=== PATIENT | male | born 1945 | race Two or more races ===

== ENCOUNTER → 2019-06-14 | Outpatient (CLI) | payer OTHER ==
[~2019-06-14] MED LIST: CELEBREX100 MG PO; LISINOPRIL2.5 MG PO; METFORMIN HYDRO25 GM MC; METRO IV; PLAVIX75 MG PO; SKELAXIN800 MG PO
== END | disposition home or self-care (01) ==
LOC: RAD 10:57
DX: M54.2 Cervicalgia (principal); M54.5 Low back pain

== ENCOUNTER 2019-07-19 12:47 | Emergency (ER) | payer OTHER ==
[~2019-07-19] VITALS: Ht 177.8 cm; Wt 86.2 kg
[2019-07-19] MEDS ORDERED: CRESTOR40 MG (13:15)
[2019-07-19] MEDS ORDERED: TOPROL XL25 M1 (13:15)
[2019-07-19] MEDS ORDERED: ASPIR 8181 MG (13:15)
[2019-07-19] MEDS ORDERED: GLIMEPIRIDE1 M1 (13:15)
[2019-07-19] MEDS ORDERED: BENICAR40 MG (13:16)
[2019-07-19] MEDS ORDERED: FINASTERIDE5 MG (13:16)
== END 2019-07-19 16:18 | disposition home or self-care (01) ==
LOC: ER 12:47
DX: M25.561 Pain in right knee (principal)

== ENCOUNTER 2019-07-22 09:49 | Emergency (ER) | payer OTHER ==
[~2019-07-22] VITALS: Ht 152.4 cm; Wt 86.2 kg
[~2019-07-22 09:49] MED LIST changes: +ASPIR 8181 MG; +BENICAR40 MG; +CRESTOR40 MG; +FINASTERIDE5 MG; +GLIMEPIRIDE1 M1; +TOPROL XL25 M1
[2019-07-22] MEDS ORDERED: KETO10TA2 PO (10:58)
== END 2019-07-22 11:19 | disposition home or self-care (01) ==
LOC: ER 09:49
DX: M25.561 Pain in right knee (principal)

== ENCOUNTER 2019-08-20 13:33 | Outpatient (CLI) | payer OTHER | END 2019-08-20 13:45 | disposition home or self-care (01) | LOC: NUCLEAR 13:33 | DX: M85.89 Other specified disorders of bone density and structure, multiple sites (principal) ==

== ENCOUNTER → 2019-08-20 | Outpatient (CLI) | payer OTHER ==
[~2019-08-20] MED LIST changes: +KETO10TA2 PO
== END | disposition home or self-care (01) ==
LOC: RAD 12:19
DX: M25.551 Pain in right hip (principal); M25.552 Pain in left hip; M79.645 Pain in left finger(s)

== ENCOUNTER 2019-08-31 10:41 | Emergency (ER) | payer OTHER ==
[~2019-08-31] VITALS: Ht 177.8 cm; Wt 86.2 kg
== END 2019-08-31 11:59 | disposition home or self-care (01) ==
LOC: ER 10:41
DX: M54.5 Low back pain (principal)

== ENCOUNTER 2019-09-02 13:54 | Emergency (ER) | payer OTHER ==
[~2019-09-02] VITALS: Ht 177.8 cm; Wt 86.2 kg
[2019-09-02] MEDS ORDERED: NORFLEX100MG (14:34)
== END 2019-09-02 16:10 | disposition home or self-care (01) ==
LOC: ER 13:54
DX: S00.12XA Contusion of left eyelid and periocular area, initial encounter (principal); W18.39XA Other fall on same level, initial encounter; Y93.89 Activity, other specified; Y92.090 Kitchen in other non-institutional residence as the place of occurrence of the external cause; Y99.8 Other external cause status

== ENCOUNTER 2021-11-01 13:08 | Emergency (ER) | payer OTHER ==
[~2021-11-01] VITALS: Ht 170.2 cm; Wt 75.7 kg
[~2021-11-01 13:08] MED LIST changes: +NORFLEX100MG
[2021-11-01] MEDS ORDERED: JARDIANCE10 MG PO (14:10)
[2021-11-01] MEDS ORDERED: KAYEXALATE15 GM/60 M PO (18:17)
== END 2021-11-01 20:20 | disposition home or self-care (01) ==
LOC: ER 13:08
DX: E87.5 Hyperkalemia (principal); R53.81 Other malaise; R53.83 Other fatigue; Z20.822 Contact with and (suspected) exposure to COVID-19; E11.9 Type 2 diabetes mellitus without complications; Z79.84 Long term (current) use of oral hypoglycemic drugs; E78.00 Pure hypercholesterolemia, unspecified; I10 Essential (primary) hypertension

== ENCOUNTER 2023-05-06 10:33 | Emergency (ER) | payer OTHER ==
[~2023-05-06] VITALS: Ht 175.3 cm; Wt 74.8 kg
[~2023-05-06 10:33] MED LIST changes: +JARDIANCE10 MG PO; +KAYEXALATE15 GM/60 M PO
[2023-05-06] MEDS ORDERED: PLAVIX75 MG (10:48)
[2023-05-06] MEDS ORDERED: HORIZANT300 MG (10:49)
[2023-05-06] MEDS ORDERED: FARXIGA5 MG PO (10:50)
[2023-05-06] MEDS ORDERED: HYDROCHLOROTH12.5 MG PO (10:51)
[2023-05-06] MEDS ORDERED: DOLOGESIC 500-1 EACH PO (15:40)
== END 2023-05-06 16:01 | disposition home or self-care (01) ==
LOC: ER 10:33
DX: M16.11 Unilateral primary osteoarthritis, right hip (principal); M70.51 Other bursitis of knee, right knee
CPT/HCPCS: 96372; 99282; J1100

== ENCOUNTER 2023-06-07 14:34 | Outpatient (CLI) | payer OTHER ==
[~2023-06-07 14:34] MED LIST changes: +DOLOGESIC 500-1 EACH PO; +FARXIGA5 MG PO; +HORIZANT300 MG; +HYDROCHLOROTH12.5 MG PO; +PLAVIX75 MG
== END 2023-06-07 14:55 | disposition home or self-care (01) ==
LOC: RAD 14:34
PROVIDERS: ATTEND Orthopaedic Surgery
DX: M25.531 Pain in right wrist (principal); M79.641 Pain in right hand

== ENCOUNTER 2023-06-16 10:19 | Outpatient (CLI) | payer OTHER | END 2023-06-16 10:20 | disposition home or self-care (01) | LOC: NUCLEAR 10:19 | PROVIDERS: ATTEND Orthopaedic Surgery | DX: M81.0 Age-related osteoporosis without current pathological fracture (principal) ==

== ENCOUNTER 2023-06-16 11:41 | Outpatient (CLI) | payer OTHER | END 2023-06-16 11:49 | disposition home or self-care (01) | LOC: SONOGRAMA 11:41 | PROVIDERS: ATTEND Urology | DX: N40.1 Benign prostatic hyperplasia with lower urinary tract symptoms (principal) ==

== ENCOUNTER → 2023-06-21 11:08 | Outpatient (CLI) | payer OTHER ==
[2023-06-21 11:49] LABS: URINE APPEARANCE Clear; URINE BILIRRUBIN Negative (NEGATIVE); URINE BLOOD Negative; URINE COLOR Yellow; URINE LEUKOCYTE Negative; URINE NITRATE Negative; URINE UROBILINOGEN 0.2 E.U./dl
[2023-06-21 11:54] LABS: URINE BACTERIA 7.5 uL (0.0-1933)
[2023-06-21 11:55] LABS: URINE EPITHELIAL CELLS 1.3 uL (0.0-38.8); URINE GLUCOSE >=1000 MG/DL (NEGATIVE); URINE PROTEIN 100 (NEGATIVE); URINE RBC 0.7 uL (0.0-20.8); URINE WBC 1.2 uL (0.0-23.2)
[2023-06-21 12:28] LABS: ALBUMIN 3.6 gm/dL (3.4-5.0); BILIRUBIN TOTAL 0.52 mg/dL (0.3-1.2); CALCIUM 9.5 mg/dL (8.5-10.1); CREATININE SERUM 1.81 mg/dL (0.70-1.30); GFR 36.35; GLOBULINA 3.5 G/DL (2.4-3.5); MAGNESIUM 1.7 mg/dL (1.8-2.4); PHOSPHOROUS 3.5 mg/dL (2.5-4.9); POTASSIUM 4.58 mEq/L (3.5-5.1); TOTAL PROTEIN 7.1 gm/dL (6.4-8.2)
== END | disposition home or self-care (01) ==
LOC: LAB 11:08
PROVIDERS: ATTEND Orthopaedic Surgery
DX: N40.1 Benign prostatic hyperplasia with lower urinary tract symptoms (principal); E55.9 Vitamin D deficiency, unspecified; M85.9 Disorder of bone density and structure, unspecified; E56.1 Deficiency of vitamin K; M81.8 Other osteoporosis without current pathological fracture; E88.89 Other specified metabolic disorders

== ENCOUNTER → 2023-07-11 10:25 | Outpatient (CLI) | payer OTHER ==
[2023-07-11 11:07] LABS: PH,URINE 6.5 (5.0-8.0); URINE APPEARANCE Clear; URINE BILIRRUBIN Negative (NEGATIVE); URINE BLOOD Large; URINE COLOR Yellow; URINE LEUKOCYTE Negative; URINE NITRATE Negative; URINE PROTEIN 30 (NEGATIVE); URINE UROBILINOGEN 0.2 E.U./dl
[2023-07-11 11:10] LABS: HEMATOCRIT 37.7 % (39.0-48.0); HEMOGLOBIN 12.8 g/dL (13-16.00); MEAN CELL VOLUME 92.7 fL (80.0-100.00); MEAN CORPUSCULAR HEMOGLOBIN 31.4 pg (27.00-32.0); MEAN CORPUSCULAR HGB CONC 33.8 g/dl (32.0-36.0); PLATELET COUNT 258 K/uL (150-450); RED BLOOD COUNT 4.07 M/uL (4.00-6.00); RED CELL DISTRIBUTION WIDTH 13.3 % (11.5-14.5)
[2023-07-11 11:11] LABS: URINE BACTERIA 85.6 uL (0.0-1933); URINE RBC 2455.8 uL (0.0-20.8); URINE WBC 25.7 uL (0.0-23.2)
[2023-07-11 11:15] LABS: URINE GLUCOSE >=1000 MG/DL (NEGATIVE)
[2023-07-11 11:27] LABS: INR 1.02; PARTIAL THROMBOPLASTIN TIME 27.5 SECONDS (22.0-34.0); PROTHROMBIN TIME 10.7 SECONDS (9.0-11.5)
[2023-07-11 11:35] LABS: ALBUMIN 3.8 gm/dL (3.4-5.0); BILIRUBIN TOTAL 0.62 mg/dL (0.3-1.2); CALCIUM 9.1 mg/dL (8.5-10.1); CREATININE SERUM 1.84 mg/dL (0.70-1.30); GFR 35.66; GLOBULINA 3.4 G/DL (2.4-3.5); POTASSIUM 4.69 mEq/L (3.5-5.1); TOTAL PROTEIN 7.2 gm/dL (6.4-8.2)
== END | disposition home or self-care (01) ==
LOC: LAB 10:25
DX: I11.9 Hypertensive heart disease without heart failure (principal); D68.8 Other specified coagulation defects; N39.0 Urinary tract infection, site not specified

== ENCOUNTER 2023-07-26 15:07 | Outpatient (CLI) | payer OTHER | END 2023-07-26 15:15 | disposition home or self-care (01) | LOC: RAD 15:07 | PROVIDERS: ATTEND Orthopaedic Surgery | DX: M16.11 Unilateral primary osteoarthritis, right hip (principal); M17.11 Unilateral primary osteoarthritis, right knee ==

== ENCOUNTER → 2023-08-04 09:18 | Outpatient (CLI) | payer OTHER ==
[2023-08-04 10:24] LABS: HEMATOCRIT 35.3 % (39.0-48.0); HEMOGLOBIN 11.9 g/dL (13-16.00); MEAN CELL VOLUME 93.8 fL (80.0-100.00); MEAN CORPUSCULAR HEMOGLOBIN 31.6 pg (27.00-32.0); MEAN CORPUSCULAR HGB CONC 33.7 g/dl (32.0-36.0); PLATELET COUNT 305 K/uL (150-450); RED BLOOD COUNT 3.76 M/uL (4.00-6.00); RED CELL DISTRIBUTION WIDTH 13.1 % (11.5-14.5)
[2023-08-04 10:28] LABS: PH,URINE 6.5 (5.0-8.0); URINE APPEARANCE Clear; URINE BILIRRUBIN Negative (NEGATIVE); URINE BLOOD Negative; URINE COLOR Yellow; URINE LEUKOCYTE Negative; URINE NITRATE Negative; URINE PROTEIN 30 (NEGATIVE); URINE UROBILINOGEN 0.2 E.U./dl
[2023-08-04 10:30] LABS: URINE EPITHELIAL CELLS 1.8 uL (0.0-38.8); URINE WBC 4.6 uL (0.0-23.2)
[2023-08-04 10:45] LABS: URINE GLUCOSE >=1000 MG/DL (NEGATIVE); URINE RBC 1.8 uL (0.0-20.8)
[2023-08-04 10:54] LABS: INR 0.99; PARTIAL THROMBOPLASTIN TIME 27.5 SECONDS (22.0-34.0); PROTHROMBIN TIME 10.4 SECONDS (9.0-11.5)
[2023-08-04 10:55] LABS: ALBUMIN 3.4 gm/dL (3.4-5.0); BILIRUBIN TOTAL 0.39 mg/dL (0.3-1.2); CALCIUM 9.2 mg/dL (8.5-10.1); CREATININE SERUM 2.11 mg/dL (0.70-1.30); GFR 30.45; GLOBULINA 3.3 G/DL (2.4-3.5); POTASSIUM 4.61 mEq/L (3.5-5.1); TOTAL PROTEIN 6.7 gm/dL (6.4-8.2)
[2023-08-04 11:04] LABS: COL EPI 76 SECONDS (82-175)
== END | disposition home or self-care (01) ==
LOC: LAB 09:18
PROVIDERS: ATTEND Orthopaedic Surgery
DX: D64.9 Anemia, unspecified (principal); D68.8 Other specified coagulation defects; N39.0 Urinary tract infection, site not specified; E11.9 Type 2 diabetes mellitus without complications; E03.9 Hypothyroidism, unspecified; Z20.822 Contact with and (suspected) exposure to COVID-19; E55.9 Vitamin D deficiency, unspecified

== ENCOUNTER 2023-08-07 10:50 | Outpatient (CLI) | payer OTHER | END 2023-08-07 10:58 | disposition home or self-care (01) | LOC: TOM 10:50 | PROVIDERS: ATTEND Orthopaedic Surgery | DX: M16.11 Unilateral primary osteoarthritis, right hip (principal) ==

== ENCOUNTER 2023-08-15 10:34 | Outpatient (CLI) | payer OTHER | END 2023-08-15 10:35 | disposition home or self-care (01) | LOC: NUCLEAR 10:34 | PROVIDERS: ATTEND Internal Medicine | DX: I10 Essential (primary) hypertension (principal); I50.30 Unspecified diastolic (congestive) heart failure ==

== ENCOUNTER 2023-08-15 12:21 | Outpatient (CLI) | payer OTHER ==
[2023-08-15 13:33] LABS: URINE APPEARANCE Clear; URINE BILIRRUBIN Negative (NEGATIVE); URINE BLOOD Negative; URINE COLOR Yellow; URINE LEUKOCYTE Negative; URINE NITRATE Negative; URINE PROTEIN 30 (NEGATIVE); URINE UROBILINOGEN 0.2 E.U./dl
[2023-08-15 13:46] LABS: URINE EPITHELIAL CELLS 0.6 uL (0.0-38.8); URINE GLUCOSE 500 MG/DL (NEGATIVE); URINE RBC 0.5 uL (0.0-20.8); URINE WBC 0.3 uL (0.0-23.2)
== END 2023-08-15 12:22 | disposition home or self-care (01) ==
LOC: LAB 12:21
PROVIDERS: ATTEND Orthopaedic Surgery
DX: N39.0 Urinary tract infection, site not specified (principal)

== ENCOUNTER → 2023-08-17 13:23 | Outpatient (CLI) | payer OTHER ==
[2023-08-17 14:16] LABS: HEMATOCRIT 36.7 % (39.0-48.0); HEMOGLOBIN 12.4 g/dL (13-16.00); MEAN CELL VOLUME 93.3 fL (80.0-100.00); MEAN CORPUSCULAR HEMOGLOBIN 31.6 pg (27.00-32.0); MEAN CORPUSCULAR HGB CONC 33.9 g/dl (32.0-36.0); PLATELET COUNT 249 K/uL (150-450); RED BLOOD COUNT 3.93 M/uL (4.00-6.00); RED CELL DISTRIBUTION WIDTH 13.5 % (11.5-14.5)
[2023-08-17 14:55] LABS: FERRITIN 51.1 NG/ML (26-388)
[2023-08-17 15:20] LABS: FOLIC ACID 16.97 ng/ml (4.78-20)
[2023-08-19 08:10] LABS: COMPLEMENT C3 123 mg/dL (82-167); COMPLEMENT C4 31 mg/dL (12-38); IMMUNOGLOBULIN A 105 mg/dL (61-437); IMMUNOGLOBULIN G 1057 mg/dL (603-1613); IMMUNOGLOBULIN M 32 mg/dL (15-143)
[2023-08-20 22:05] LABS: CH 50 COMPLEMENT > 60 U/mL (>41)
== END | disposition home or self-care (01) ==
LOC: LAB 13:23
PROVIDERS: ATTEND Internal Medicine Hematology & Oncology
DX: D70.8 Other neutropenia (principal); D80.4 Selective deficiency of immunoglobulin M [IgM]; D80.8 Other immunodeficiencies with predominantly antibody defects; D50.8 Other iron deficiency anemias; D51.3 Other dietary vitamin B12 deficiency anemia; D52.0 Dietary folate deficiency anemia

== ENCOUNTER 2023-08-21 09:25 | Inpatient (IN) | payer OTHER ==
[~2023-08-21] VITALS: Ht 177.8 cm; Wt 74.8 kg
[2023-08-21] MEDS ORDERED: TRANEXAMIC ACID 100MG/1ML (1000MG) AMPUL IV ONE (13:00)
[2023-08-21] MEDS ORDERED: CEFAZOLIN SODIUM 1,000 MG VIAL ONE (13:00)
[2023-08-21] MEDS ORDERED: BUPIVACAINE HCL/PF 0.5% 30ML ML ONE (13:36)
[2023-08-21] MEDS ORDERED: EPINEPHRINE HCL/PF 1 MG/ML AMPUL ONE (13:36)
[2023-08-21] MEDS ORDERED: LIDOCAINE HCL/EPINEPHRINE 10MG/ML 1% 50ML IJ ONE (13:36)
[2023-08-21] MEDS ORDERED: KETOROLAC TROMETHAMINE 60 MG VIAL IM ONE (13:36)
[2023-08-21] MEDS ORDERED: VANCOMYCIN HCL 1,000 MG VIAL ONE (13:36)
[2023-08-21] MEDS ORDERED: BUPIVACAINE HCL/PF 0.5% 30ML ML IJ SCH (14:45)
[2023-08-21] MEDS ORDERED: KETOROLAC TROMETHAMINE 60 MG VIAL IM SCH (14:45)
[2023-08-21] MEDS ORDERED: EPINEPHRINE HCL/PF 1 MG/ML AMPUL IR SCH (14:45)
[2023-08-21] MEDS ORDERED: TRANEXAMIC ACID 100MG/1ML (1000MG) AMPUL IV SCH ×2 (14:45)
[2023-08-21] MEDS ORDERED: MORPHINE SULFATE 4 MG/ML CARTRIDGE IV SCH (14:45)
[2023-08-21] MEDS ORDERED: CEFAZOLIN SODIUM 1,000 MG VIAL IV SCH ×2 (14:45→17:00)
[2023-08-21] MEDS ORDERED: VANCOMYCIN HCL 1,000 MG VIAL IR SCH (14:45)
[2023-08-21] MEDS ORDERED: ISOPROPYL ALCOHOL 30 ML OUNCE TOP SCH (14:45)
[2023-08-21] MEDS ORDERED: LIDOCAINE HCL/EPINEPHRINE 30 ML ML IJ SCH (14:45)
[2023-08-21] MEDS ORDERED: PANTOPRAZOLE SODIUM 40 MG TABLET.DR PO SCH (16:58)
[2023-08-21] MEDS ORDERED: ACETAMINOPHEN 325 MG TABLET PO SCH (17:00)
[2023-08-21] MEDS ORDERED: CELECOXIB 200 MG CAPSULE PO SCH (17:00)
[2023-08-21] MEDS ORDERED: ONDANSETRON HCL 2 MG/ML VIAL IV PRN (17:00)
[2023-08-21] MEDS ORDERED: ONDANSETRON 4 MG TAB.RAPDIS PO PRN (17:00)
[2023-08-21] MEDS ORDERED: TRAMADOL HCL 50 MG TABLET PO PRN (17:00)
[2023-08-21] MEDS ORDERED: PROMETHAZINE HCL 50 MG/ML AMPUL IM PRN (17:00)
[2023-08-21] MEDS ORDERED: MEPERIDINE HCL/PF 50 MG/ML VIAL IM PRN (17:00)
[2023-08-21] MEDS ORDERED: SODIUM CHLORIDE 0.45 % 1,000 ML IV SCH (17:00)
[2023-08-21] MEDS ORDERED: KETOROLAC TROMETHAMINE 10 MG TABLET PO SCH (21:00)
[2023-08-21] MEDS ORDERED: INSULIN LISPRO 1,000 UNIT/10 ML UNITS SUBCUTANEO PRN (21:45)
[2023-08-21] MEDS ORDERED: DEXTROSE 50 % IN WATER 0.5 G/ML DISP.SYRIN IV PRN (21:45)
[2023-08-22 07:32] LABS: HEMOGLOBIN 10.4 g/dL (13-16.00); MEAN CELL VOLUME 93.1 fL (80.0-100.00); MEAN CORPUSCULAR HEMOGLOBIN 32.1 pg (27.00-32.0); MEAN CORPUSCULAR HGB CONC 34.5 g/dl (32.0-36.0); PLATELET COUNT 207 K/uL (150-450); RED BLOOD COUNT 3.22 M/uL (4.00-6.00); RED CELL DISTRIBUTION WIDTH 12.8 % (11.5-14.5)
[2023-08-22] MEDS ORDERED: HYDROCHLOROTHIAZIDE 12.5 MG CAPSULE PO SCH (09:00)
[2023-08-22] MEDS ORDERED: METOPROLOL SUCCINATE 100 MG TAB.SR.24H PO SCH (09:00)
[2023-08-22] MEDS ORDERED: RIVAROXABAN 10 MG TAB PO SCH (09:00)
[2023-08-22] MEDS ORDERED: IRON FUM,PS/FOLIC/BCOMP,C NO.9 1 CAP CAPSULE PO SCH (14:27)
[2023-08-23 05:13] LABS: HEMATOCRIT 29.5 % (39.0-48.0); HEMOGLOBIN 10.2 g/dL (13-16.00); MEAN CELL VOLUME 92.5 fL (80.0-100.00); MEAN CORPUSCULAR HEMOGLOBIN 32.2 pg (27.00-32.0); MEAN CORPUSCULAR HGB CONC 34.8 g/dl (32.0-36.0); PLATELET COUNT 214 K/uL (150-450); RED BLOOD COUNT 3.18 M/uL (4.00-6.00); RED CELL DISTRIBUTION WIDTH 12.9 % (11.5-14.5)
[2023-08-23] MEDS ORDERED: SENNA/DOCUSATE SODIUM 1 TAB TABLET PO SCH (09:00)
== END 2023-08-23 16:14 | DRG 470 ==
LOC: O/R 09:25 → SURG 13:00
PROVIDERS: ADMIT Orthopaedic Surgery; ATTEND Orthopaedic Surgery
PROC: 0MBL0ZZ Excision of Right Hip Bursa and Ligament, Open Approach (ICD-10-PCS; 2023-08-21)
PROC: 01NF0ZZ Release Sciatic Nerve, Open Approach (ICD-10-PCS; 2023-08-21)
PROC: 0SR90JZ Replacement of Right Hip Joint with Synthetic Substitute, Open Approach (ICD-10-PCS; principal; 2023-08-21 13:00)
DX: M16.11 Unilateral primary osteoarthritis, right hip (principal); G57.01 Lesion of sciatic nerve, right lower limb

== ENCOUNTER 2023-12-27 11:44 | Outpatient (CLI) | payer OTHER | END 2023-12-27 11:53 | disposition home or self-care (01) | LOC: RAD 11:44 | PROVIDERS: ATTEND Orthopaedic Surgery | DX: M25.551 Pain in right hip (principal) ==